=== PATIENT | male | born 1990 | race Caucasian/White ===

== ENCOUNTER 2016-12-08 22:00 | Emergency (ER) | payer SELFPAY ==
--- NOTE | ~2016-12-08 | CT2 ---
[facility] A Service [facility] RADIOLOGY TEXT RESULTS PATIENT: AGUILA FERRER LOCATION: SED : [birth year] UNIT #: [id number] AGE: [address]: Aparna Vargas SEX: M ORDER DR: [id number] [place] [id number] E MR#: [id number] Acc #: [id number] NAME: AGUILA FERRER. : 1990 SEX: M STUDY DATE/TIME: 12/08/2016 23:31 UNIT: SED ROOM: STUDY DESCRIPTION: CT Abd and Pelv W Cont Attending Physician: Aparna Vargas P.A.-C. Ordering Physician: Aparna Vargas P.A.-C. Primary Care Physician: Olivia George M.D. MEDICAL IMAGING REPORT This report is preliminary unless electronic signature is present. EXAM CT abdomen and pelvis with contrast, 12/08/2016 HISTORY 26-year-old male in the ED complaining of abdomen pain and diarrhea beginning earlier this morning. TECHNIQUE CT examination of the abdomen and pelvis was performed with IV contrast. GI contrast material was not ordered. This CT exam was performed with one or more of the following radiation dose reduction techniques: automatic exposure control, adjustment of mA and/or kV according to patient size, and iterative reconstruction. FINDINGS ABDOMEN: Liver, pancreas, spleen and kidneys are normal in size and appearance. Nondistended gallbladder. No bile duct dilatation. Small bowel and colon are normal in caliber and appearance, as imaged. The appendix is surgically absent. Normal-caliber abdominal aorta. PELVIS FINDINGS: Bladder, prostate and rectum are within normal limits. No inguinal hernia or abdominal wall hernia. Limited lung base images are negative. IMPRESSION 1. Negative CT examination of the abdomen and pelvis. 2. Surgically absent appendix. [facility] A Service [facility] RADIOLOGY TEXT RESULTS PATIENT: AGUILA FERRER LOCATION: SED : 90 UNIT #: [id number] AGE: [address]: Aparna Vargas SEX: M ORDER DR: Dictated by... Urbano Paulino M.D. THIS IS AN ELECTRONICALLY VERIFIED REPORT Urbano Paulino M.D. at 12/09/2016 4:06 AM ZURI/eric TD: 12/09/2016 02:30 JOB #: [id number] MEDICAL IMAGING REPORT Page 1 of 1
[~2016-12-08 22:00] MED LIST: ALBUTEROL17 GM INH; CLEOCIN PO; CLINDAMYCIN HC300 MG PO; FLEXERIL10 M1 PO; HYDROCODON-ACE1 EAC7 PO; LISINOPRIL PO; LORTAB 10-5001 EACH PO; MEDROL4 MG/DOSE- PO; NO MEDICATIONS; TOPROL XL PO; TYLENOL #4 PO; VOLTAREN75 MG PO; ZESTRIL10 M2 PO; ZITHROMAX1 G/PKT PO
[2016-12-08 22:46] LABS: BASOPHIL# 0.1 X10e3 (0-0.3); BASOPHIL% 0.5 % (0-2.5); EOSINOPHIL# 0.1 X10e3 (0-0.7); HEMATOCRIT 49.5 % (38.0-50.0); HEMOGLOBIN 16.9 gm/dL (13.0-16.0); LYMPHOCYTE# 1.1 X10e3 (1.0-3.5); LYMPHOCYTE% 8.6 % (17.0-45.0); MEAN CELL VOLUME 87.5 FL (83-96); MEAN CORPUSCULAR HEMOGLOBIN 29.9 PG (28-34); MEAN CORPUSCULAR HGB CONC 34.2 g/dL (30-36); MEAN PLATELET VOLUME 8.7 FL (6.5-11.5); MONOCYTE# 0.7 X10e3 (0-1.0); MONOCYTE% 5.8 % (3.0-12.0); NEUTROPHIL# 10.9 X10e3 (1.5-7.1); NEUTROPHIL% 84.1 % (40-75); PLATELET COUNT 228 X10e3 (140-420); RED BLOOD COUNT 5.65 X10e (3.90-5.60); RED CELL DISTRIBUTION WIDTH 14.2 % (11.0-15.5); WHITE BLOOD COUNT 12.9 X10e3 (4.0-10.5)
[2016-12-08 22:48] LABS: DIFF IND NO
[2016-12-08 23:14] LABS: ALBUMIN SERUM 4.2 g/dL (3.5-5.0); BILIRUBIN, DIRECT 0.1 mg/dL (0.0-0.2); BILIRUBIN,INDIRECT 0.7 mg/dL (0.0-0.9); BILIRUBIN,TOTAL 0.8 mg/dL (0.2-2.0); BUN/CREATININE RATIO 7.77; CALCIUM SERUM 9.5 mg/dL (8.4-10.2); CREATININE SERUM 0.9 mg/dL (0.6-1.4); GLOM FILT RATE Estimated 117.5 mL/min (>60); POTASSIUM 3.9 mmol/L (3.5-5.1); PROTEIN TOTAL SERUM 7.2 g/dL (6.0-8.3)
[2016-12-08 23:51] LABS: URINE SOURCE CLEAN CATCH
[2016-12-08 23:54] LABS: URINE APPEARANCE CLEAR; URINE BILIRUBIN NEG (NEG); URINE BLOOD NEG (NEG); URINE COLOR YELLOW; URINE GLUCOSE NEG (NORM); URINE KETONE NEG (NEG); URINE LEUKOCYTE ESTERASE NEG (NEG); URINE NITRATE NEG (NEG); URINE PROTEIN NEG (NEG); URINE SPECIFIC GRAVITY 1.015 (1.003-1.035); URINE UROBILINOGEN 0.2 MG/DL (NORM)
[2016-12-09] LABS: MICRO INDICATED? NO
[2016-12-09] MEDS ORDERED: OMEPRAZOLE40 M1 PO (00:29)
[2016-12-09] MEDS ORDERED: BENTYL20 MG PO (00:29)
[2016-12-09] MEDS ORDERED: ZOFRAN ODT4 M1 PO (00:30)
== END 2016-12-09 00:33 | disposition home or self-care (01) ==
LOC: SED 22:00
PROVIDERS: Physician Assistant
DX: R10.84 Generalized abdominal pain (principal); R19.7 Diarrhea, unspecified; R11.0 Nausea; I10 Essential (primary) hypertension; F17.210 Nicotine dependence, cigarettes, uncomplicated; Z90.89 Acquired absence of other organs; Z79.899 Other long term (current) drug therapy; Z88.0 Allergy status to penicillin; Z88.1 Allergy status to other antibiotic agents
CPT/HCPCS: 36415; 74177; 80048; 80076; 81003; 82150; 83690; 85025; 96374; 96375; 99284; J1885; J2405; Q9967